=== PATIENT | female | born 1945 | race Caucasian/White ===

== ENCOUNTER 2017-08-01 20:11 | Emergency (ER) | payer MEDICARE, BC ==
[~2017-08-01] VITALS: Ht 167.6 cm; Wt 81.1 kg
[2017-08-01] MEDS ORDERED: IV NORMAL SALINE 1,000ML 1,000 ML IV SCH (20:28)
[2017-08-01] MEDS ORDERED: ONDANSETRON PF 4 MG/2 ML VIAL. IV ONE (20:30)
[2017-08-01 21:11] LABS: BASO % 0 % (0-3); EOS % 0 % (0-3); HEMATOCRIT 45.2 % (36.0-47.0); LYMPH # 0.5 x10^3/uL (1.0-4.8); LYMPH % 5 % (24-48); MEAN CORPUSCULAR HEMOGLOBIN 31 pg (25-35); MEAN CORPUSCULAR HGB CONC 35 g/dL (31-37); MEAN CORPUSCULAR VOLUME 88 fL (79-100); MONO # 0.4 x10^3/uL (0.0-1.1); MONO % 4 % (0-9); NEUT # 9.6 x10^3uL (1.8-7.7); NEUT % 91 % (31-73); PLATELET COUNT 184 x10^3/uL (140-400); RED BLOOD COUNT 5.15 x10^6/uL (3.50-5.40); RED CELL DISTRIBUTION WIDTH 13.5 % (11.5-14.5); WHITE BLOOD COUNT 10.5 x10^3/uL (4.0-11.0)
[2017-08-01 21:30] LABS: ALBUMIN/GLOBULIN RATIO 1.1 (1.0-1.7); ALK PHOS 127 U/L (46-116); ALT (SGPT) 53 U/L (14-59); ANION GAP 15 (6-14); AST (SGOT) 33 U/L (15-37); BLOOD UREA NITROGEN 17 mg/dL (7-20); BUN/CREATININE RATIO 15 (6-20); CALCIUM 9.8 mg/dL (8.5-10.1); CARBON DIOXIDE 24 mmol/L (21-32); CHLORIDE 100 mmol/L (98-107); CREATINE KINASE 31 U/L (26-192); CREATININE 1.1 mg/dL (0.6-1.0); GFR 48.6; GLUCOSE 163 mg/dL (70-99); LIPASE 81 U/L (73-393); POTASSIUM 3.4 mmol/L (3.5-5.1); SODIUM 139 mmol/L (136-145); TOTAL BILIRUBIN 0.9 mg/dL (0.2-1.0); TOTAL PROTEIN 7.6 g/dL (6.4-8.2)
[2017-08-01 22:05] VITALS: BP 131/72
--- NOTE | 2017-08-01 22:14 | PHYS DOC ---
Past History Past Medical History: Endometriosis, Fibromyalgia, GERD, High Cholesterol, Hypothyroid, Pancreatitis, Sinusitis, Other Past Surgical History: Appendectomy, Cholecystectomy, Hysterectomy, Tonsillectomy, Other Smoking: Non-smoker Alcohol Use: Rarely Drug Use: None Adult General Chief Complaint Chief Complaint: NAUSEA/VOMITING/DIARRHEA HPI HPI Patient is a 72 year old female who presents with "feeling bad." she has seen her doctor 3 times she states for chronic abdominal issues. She states that today she developed chills, dizziness, nausea and vomiting at 11:30 am and 2 loose stools and body aches. No known fever. No cough. She did not receive her influenza vaccine this year. No recent travel. Review of Systems Review of Systems Constitutional: Denies fever or chills Eyes: Denies change in visual acuity, redness, or eye pain HENT: Denies nasal congestion or sore throat Respiratory: Denies cough or shortness of breath Cardiovascular: No chest pain GI: Denies abdominal pain, POS nausea, vomiting, NO bloody stools; POS diarrhea x 3 stools : Denies dysuria or hematuria Musculoskeletal: Denies back pain or joint pain; POS body aches. Integument: Denies rash or skin lesions Neurologic: Denies headache, focal weakness or sensory changes All other systems were reviewed and found to be within normal limits, except as documented in this note. Current Medications Current Medications Current Medications Medications (Trade) Dose Ordered Sig/Eric Start Time Stop Time Status Last Admin Dose Admin Ondansetron HCl (Zofran) 4 mg 1X ONCE 08/01/17 20:30 08/01/17 20:42 DC 08/01/17 21:05 4 MG Sodium Chloride 1,000 ml @ 1,000 mls/hr Q1H 08/01/17 20:28 08/01/17 21:27 DC 08/01/17 21:05 1,000 MLS/HR Allergies Allergies Allergies Uncoded Allergies Type Severity Reaction Last Updated Verified some narcotic Adverse Reaction Intermediate 08/01/17 Physical Exam Physical Exam Constitutional: Well developed, well nourished, no acute distress, non-toxic appearance. HENT: Normocephalic, atraumatic, bilateral external ears normal, oropharynx moist, no oral exudates, nose normal. Eyes: PERRLA, EOMI, conjunctiva normal, no discharge. Neck: Normal range of motion, no tenderness, supple, no stridor. Cardiovascular:Heart rate regular rhythm, no murmur Lungs & Thorax: Bilateral breath sounds clear to auscultation Abdomen: Bowel sounds normal, soft, no tenderness, no masses, no pulsatile masses. Skin: Warm, dry, no erythema, no rash. Back: No tenderness, no CVA tenderness. Extremities: No tenderness, no cyanosis, no clubbing, ROM intact, no edema. Neurologic: Alert and oriented X 3, normal motor function, normal sensory function, no focal deficits noted. Psychologic: Affect normal, judgement normal, mood normal. Current Patient Data Vital Signs Vital Signs Date Time Temp Pulse Resp B/P (MAP) Pulse Ox O2 Delivery O2 Flow Rate FiO2 08/01/17 20:15 98.5 92 24 98 Room Air BP 131/72 Lab Results Laboratory Tests Test 08/01/17 20:45 White Blood Count 10.5 x10^3/uL (4.0-11.0) Red Blood Count 5.15 x10^6/uL (3.50-5.40) Hemoglobin 16.0 g/dL (12.0-15.5) H Hematocrit 45.2 % (36.0-47.0) Mean Corpuscular Volume 88 fL (79-100) Mean Corpuscular Hemoglobin 31 pg (25-35) Mean Corpuscular Hemoglobin Concent 35 g/dL (31-37) Red Cell Distribution Width 13.5 % (11.5-14.5) Platelet Count 184 x10^3/uL (140-400) Neutrophils (%) (Auto) 91 % (31-73) H Lymphocytes (%) (Auto) 5 % (24-48) L Monocytes (%) (Auto) 4 % (0-9) Eosinophils (%) (Auto) 0 % (0-3) Basophils (%) (Auto) 0 % (0-3) Neutrophils # (Auto) 9.6 x10^3uL (1.8-7.7) H Lymphocytes # (Auto) 0.5 x10^3/uL (1.0-4.8) L Monocytes # (Auto) 0.4 x10^3/uL (0.0-1.1) Eosinophils # (Auto) 0.0 x10^3/uL (0.0-0.7) Basophils # (Auto) 0.0 x10^3/uL (0.0-0.2) Sodium Level 139 mmol/L (136-145) Potassium Level 3.4 mmol/L (3.5-5.1) L Chloride Level 100 mmol/L (98-107) Carbon Dioxide Level 24 mmol/L (21-32) Anion Gap 15 (6-14) H Blood Urea Nitrogen 17 mg/dL (7-20) Creatinine 1.1 mg/dL (0.6-1.0) H Estimated GFR (Cockcroft-Gault) 48.6 BUN/Creatinine Ratio 15 (6-20) Glucose Level 163 mg/dL (70-99) H Calcium Level 9.8 mg/dL (8.5-10.1) Total Bilirubin 0.9 mg/dL (0.2-1.0) Aspartate Amino Transferase (AST) 33 U/L (15-37) Alanine Aminotransferase (ALT) 53 U/L (14-59) Alkaline Phosphatase 127 U/L (46-116) H Creatine Kinase 31 U/L (26-192) Creatine Kinase MB (Mass) < 0.5 ng/mL (0.0-3.6) Creatine Kinase MB Relative Index 1.6 % (0-4) Troponin I Quantitative < 0.017 ng/mL (0-0.055) Total Protein 7.6 g/dL (6.4-8.2) Albumin 4.0 g/dL (3.4-5.0) Albumin/Globulin Ratio 1.1 (1.0-1.7) Lipase 81 U/L (73-393) Influenza A and B negative Course & Med Decision Making Course & Med Decision Making evaluated patient. She has very nonspecific symptoms. IV NS, IV Zofran. lab and influenza sent. Lab and influenza negative. No evidence of acute surgical abdomen. She has nonspecific viral symptoms. Given return and followup precautions. Home with zofran. I have spoken with the patient and/or caregivers. I have explained the patient' s condition, diagnosis and treatment plan based on the information available to me at this time. I have answered the patient's and/or caregiver's questions and addressed any concerns. The patient and/or caregivers have as good an understanding of the patient's diagnosis, condition and treatment plan as can be expected at this point. The patient's condition is stable and appropriate for discharge from the emergency department. The patient will pursue further outpatient evaluation with the primary care physician or other designated or consulting physician as outlined in the discharge instructions. The patient and/or caregivers are agreeable to this plan of care and follow-up instructions have been explained in detail. The patient and/or caregivers have received these instructions in written format and have expressed an understanding of the discharge instructions. The patient and/or caregivers are aware that any significant change in condition or worsening of symptoms should prompt an immediate return to this or the closest emergency department or a call to 911. Dragon Disclaimer Dragon Disclaimer This electronic medical record was generated, in whole or in part, using a voice recognition dictation system. Departure Departure: Impression: Primary Impression: Viral syndrome Additional Impression: Nausea vomiting and diarrhea Disposition: HOME, SELF-CARE Condition: STABLE Referrals: CORETTA HUGGINS MD (PCP) Patient Instructions: Viral Syndrome Additional Instructions: YOUR LAB AND INFLUENZA WERE NEGATIVE HERE . YOU WERE GIVEN IV FLUIDS AND ZOFRAN FOR THE NAUSEA. A PRESCRIPTION FOR NAUSEA WAS PROVIDED. CALL YOUR DOCTOR ON THURSDAY FOR A RECHECK. Scripts Ondansetron (ZOFRAN ODT) 8 Mg Tab.rapdis 4 MG PO Q6-8HRS Y for NAUSEA, #10 Prov: BJ WSIFT MD 08/01/17 Problem Qualifiers BJ SWIFT MD Aug 01, 2017 22:14
[2017-08-01] MEDS ORDERED: ACETAMINOPHEN 325 MG TABLET PO ONE (22:15)
[2017-08-01 22:24] LABS: BILIRUBIN,URINE NEG (NEG); CLARITY,URINE CLEAR; COLOR,URINE YELLOW; GLUCOSE,URINE NEG (NEG); NITRITE,URINE NEG (NEG); RBC,URINE 0 /HPF (0-2); UROBILINOGEN,URINE 0.2 mg/dL (0.2 mg/dL)
[2017-08-01 22:25] LABS: BACTERIA,URINE FEW /HPF (0-FEW); SQUAMOUS EPITHELIAL CELL,UR OCC /LPF; WBC,URINE OCC /HPF (0-4)
[2017-08-01 22:35] LABS: INFLUENZA A PATIENT NEGATIVE (NEGATIVE); INFLUENZA B PATIENT NEGATIVE (NEGATIVE)
[2017-08-01] MEDS ORDERED: ONDA8TAB12 PO (22:40)
== END 2017-08-01 22:55 | disposition home or self-care (01) ==
LOC: ER 20:11
DX: B34.9 Viral infection, unspecified (principal); M79.7 Fibromyalgia; K21.9 Gastro-esophageal reflux disease without esophagitis; E78.00 Pure hypercholesterolemia, unspecified; E03.9 Hypothyroidism, unspecified; Z88.5 Allergy status to narcotic agent
CPT/HCPCS: 36415; 80053; 81001; 82553; 83690; 84484; 85025; 87804; 96361; 96374; 99284; J2405; J7030

== ENCOUNTER → 2018-02-22 | Outpatient (CLI) | payer MEDICARE, BC ==
[~2018-02-22] MED LIST: ONDA8TAB12 PO
--- NOTE | 2018-02-22 17:58 | RAD ---
CT scan of the head without contrast 02/22/2018 Clinical History: Fall with head trauma. Dizziness. Technique: Unenhanced, contiguous, 5 mm axial sections were obtained through the head. One or more of the following individualized dose reduction techniques were utilized for this study: 1. Automated exposure control. 2. Adjustment of the mA and/or kV according to patient size. 3. Use of iterative reconstruction technique. Findings: Comparison study is dated 12/25/2004. There is generalized parenchymal atrophy. Areas of decreased attenuation are seen within the periventricular and subcortical white matter of both cerebral hemispheres consistent with areas of small vessel ischemic disease. No acute parenchymal abnormality is seen. No extra-axial fluid collection is noted. No skull fracture is seen. Impression: No acute intracranial abnormality is seen. Electronically signed by: Prabhakar Aguilar MD (02/22/2018 5:54 PM) [facility]
== END | disposition home or self-care (01) ==
LOC: CT 17:17
PROVIDERS: ATTEND Family Medicine
DX: H53.8 Other visual disturbances (principal); E78.00 Pure hypercholesterolemia, unspecified; E03.9 Hypothyroidism, unspecified; K21.9 Gastro-esophageal reflux disease without esophagitis; R42 Dizziness and giddiness; Z91.81 History of falling
CPT/HCPCS: 70450

== ENCOUNTER → 2019-01-29 | Outpatient (CLI) | payer MEDICARE, BC ==
[~2019-01-29] MED LIST changes: +IOHEXOL 350 MG/ML 100 ML VIAL. IV ONE
--- NOTE | 2019-01-29 15:03 | RAD ---
CTA OF THE CHEST WITH AND WITHOUT CONTRAST Clinical indications: Shortness of breath. Technique: Noncontrast axial localizer was performed. After IV infusion of 80 cc of Omnipaque 350, helical CT scanning of the chest was performed using the CT pulmonary embolism protocol. A coronal MIP reconstruction was generated. PQRS compliance Statement One or more of the following individualized dose reduction techniques were utilized for this study: 1. Automated exposure control 2. Adjustment of the mA and/or kV according to patient size 3. Use of iterative reconstruction technique Comparison: No previous chest CT available. Findings: No pulmonary embolism is evident. No focal aneurysmal dilatation of the thoracic aorta is seen. Thoracic aorta is not opacified and therefore evaluation for intimal flap or dissection cannot be completed. Calcified atheromatous disease of the coronary arteries is seen. The heart size is mildly enlarged. No pericardial effusion is seen. No enlarged thoracic lymphadenopathy is evident. Calcified mediastinal lymph nodes are seen due to old granulomatous disease. Groundglass lung infiltrates are seen bilaterally more prominent within the lower lobes posteriorly which may represent dependent atelectasis. Certainly, pulmonary edema is a possibility. No lung consolidation with air bronchograms is seen. No lung mass is evident. There is a lung nodule within the medial right apex measuring 5.5 mm in size seen on image 20 and series 4. Calcified granuloma of the right lower lobe is seen. No pleural effusion or pneumothorax is evident. The proximal bronchial tree is patent. No lytic process is seen. IMPRESSION: No pulmonary embolism. Cardiomegaly. Calcified atheromatous disease of the coronary arteries. Bilateral groundglass lung infiltrates most likely representing atelectasis but could be seen with pulmonary edema if there are clinical findings of rales. 5.5 mm noncalcified right apical lung nodule. Recommend a follow-up chest CT in 12 months as per Fleischner guidelines if the patient is at high risk for malignancy. Electronically signed by: Sal Muse MD (01/29/2019 3:00 PM) [facility]
== END | disposition home or self-care (01) ==
LOC: CT 13:48
PROVIDERS: ATTEND Family Medicine
DX: I25.10 Atherosclerotic heart disease of native coronary artery without angina pectoris (principal); I51.7 Cardiomegaly; R91.1 Solitary pulmonary nodule; J84.10 Pulmonary fibrosis, unspecified; R91.8 Other nonspecific abnormal finding of lung field
CPT/HCPCS: 71275; Q9967

== ENCOUNTER → 2021-02-13 | Day surgery (SDC) | payer MEDICARE, BC ==
[~2021-02-13] MED LIST changes: +BUPIVACAINE MPF 0.25% 10 ML VIAL. ONE; +IOHEXOL 300 MG/ML 50 ML VIAL. ONE; -IOHEXOL 350 MG/ML 100 ML VIAL. IV ONE; +LIDOCAINE 1% PF 30 ML VIAL. ONE; +methylPREDNISolone ACETATE 80 MG/ML VIAL. ONE
[2021-02-13 15:23] VITALS: BP 155/70
== END | disposition home or self-care (01) ==
LOC: SURG 14:30
PROVIDERS: ATTEND Anesthesiology
DX: M16.12 Unilateral primary osteoarthritis, left hip (principal); Z79.899 Other long term (current) drug therapy; Z72.89 Other problems related to lifestyle
CPT/HCPCS: 20610; 77002; J1040; J3490; Q9967

== ENCOUNTER → 2021-11-06 | Day surgery (SDC) | payer MEDICARE, BC ==
[~2021-11-06] MED LIST changes: -BUPIVACAINE MPF 0.25% 10 ML VIAL. ONE; +BUPIVACAINE MPF 0.25% 30 ML VIAL. ONE; +methylPREDNISolone ACETATE 40 MG/ML VIAL. ONE; -methylPREDNISolone ACETATE 80 MG/ML VIAL. ONE
[2021-11-06 16:21] VITALS: BP 134/63
== END | disposition home or self-care (01) ==
LOC: SURG 15:49
PROVIDERS: ATTEND Anesthesiology
DX: M16.12 Unilateral primary osteoarthritis, left hip (principal); M79.7 Fibromyalgia; J45.909 Unspecified asthma, uncomplicated; F32.9 Major depressive disorder, single episode, unspecified; E78.5 Hyperlipidemia, unspecified; I10 Essential (primary) hypertension; E03.9 Hypothyroidism, unspecified; I25.10 Atherosclerotic heart disease of native coronary artery without angina pectoris; K21.00 Gastro-esophageal reflux disease with esophagitis, without bleeding; Z91.81 History of falling; Z90.49 Acquired absence of other specified parts of digestive tract; Z90.710 Acquired absence of both cervix and uterus; Z98.890 Other specified postprocedural states; Z79.899 Other long term (current) drug therapy; Z88.5 Allergy status to narcotic agent
CPT/HCPCS: 20610; 77002; A4209; A4657; A4930; J1030; J3490; Q9967

== ENCOUNTER → 2021-11-27 | Outpatient (CLI) | payer MEDICARE, BC ==
[2021-11-06 16:21] VITALS: BP 134/63
[~2021-11-27] MED LIST changes: -BUPIVACAINE MPF 0.25% 30 ML VIAL. ONE; -IOHEXOL 300 MG/ML 50 ML VIAL. ONE; -LIDOCAINE 1% PF 30 ML VIAL. ONE; -methylPREDNISolone ACETATE 40 MG/ML VIAL. ONE
--- NOTE | 2021-11-27 11:32 | RAD ---
EXAM: Abdomen sonogram. HISTORY: Pain. TECHNIQUE: Sonographic imaging of the abdomen was performed. COMPARISON: None. FINDINGS: The liver is normal in size. There is a solid hyperechoic mass within the liver measuring 1 .6 cm. The kidneys are normal in size. There is no hydronephrosis. The spleen is normal in size. The pancreas, aorta and inferior vena cava are partially obscured due to bowel gas. The gallbladder is rangel rgically absent. The common bile duct is normal in caliber. IMPRESSION: 1. No acute sonographic finding. 2. Cholecystectomy. 3. Obscured midline structures due to bowel gas. 4. 1.6 cm hyperechoic liver mass. In the absence of known malignancy, this is likely a benign hemangi yumiko. Electronically signed by: Linda Jaramillo MD (11/27/2021 11:30 AM) [id number]
== END ==
LOC: US 10:40
PROVIDERS: ATTEND Internal Medicine Gastroenterology
DX: R16.0 Hepatomegaly, not elsewhere classified (principal); Z90.49 Acquired absence of other specified parts of digestive tract
CPT/HCPCS: 76700